=== PATIENT | male | born 1950 | race Caucasian/White ===

== ENCOUNTER 2022-01-31 14:38 | Inpatient (IN) ==
[2022-01-31 15:36] LABS: Basophils % 0.5 %; Eosinophils # 0.5 K/mcL (0.0-0.6); Eosinophils % 6.6 %; Hematocrit 46.6 % (37.5-50.1); Hemoglobin 15.4 g/dL (12.9-16.9); Immature Granulocytes % 0.3 % (0-4); Lymphocytes # 1.9 K/mcL (0.6-4.6); Lymphocytes % 23.2 %; Mean Corpuscular Hemoglobin 27.4 pg (28.0-33.3); Mean Corpuscular Volume 82.8 fL (83.0-100.0); Mean Platelet Volume 10.4 fL (9.4-12.4); Monocytes # 0.7 K/mcL (0.0-1.3); Monocytes % 8.5 %; Neutrophils # 4.9 K/mcL (1.6-8.9); Platelet Count 269 K/mcL (140-400); Red Blood Count 5.63 M/mcL (4.19-5.50); Red Cell Distribution Width 12.6 % (11.5-14.5); Segmented Neutrophils % 60.9 %
[2022-01-31 15:54] LABS: BUN/Creatinine Ratio 19 (6-26); Blood Urea Nitrogen 21 mg/dL (8-23); Calcium 9.7 mg/dL (8.6-10.3); Carbon Dioxide 31 mEq/L (23-29); Chloride 98 mEq/L (98-107); Glucose 340 mg/dL (70-105); Osmolality,Calculated 296 (280-300); Potassium 4.5 mEq/L (3.5-5.1); Sodium 135 mEq/L (136-145); eGFR For African Americans > 60 (> 60); eGFR For Non-African Americans > 60 (> 60)
[2022-01-31 15:57] LABS: Troponin I 0.09 ng/mL (< 0.04)
[2022-01-31] MEDS ORDERED: Aspirin 325 MG TABLET PO ONE ×2 (17:02→17:22)
[2022-01-31] MEDS ORDERED: Naloxone 0.4 MG/ML INJ IVP PRN (17:55)
[2022-01-31] MEDS ORDERED: Nitroglycerin 0.4 MG TAB.SUBL SL PRN (17:55)
[2022-01-31] MEDS ORDERED: Ondansetron ODT 4 MG TAB.RAPDIS SL PRN (17:55)
[2022-01-31] MEDS ORDERED: Morphine Sulfate 2 MG/ML SYRINGE IVP PRN (17:55)
[2022-01-31] MEDS ORDERED: Perflutren Lipid Microsphere 1.3 ML in 0.9 % Sodium Chloride 8.7 ML IVP PRN (17:55)
[2022-01-31] MEDS ORDERED: D5% in Water 1,000 ML IVC PRN (18:06)
[2022-01-31] MEDS ORDERED: *HR* Dextrose 50 % in Water (Syg) 50 ML SYRINGE IVP PRN (18:06)
[2022-01-31] MEDS ORDERED: Dextrose 4 GM Chewable Tablets PO PRN ×2 (18:06)
[2022-01-31] MEDS: Isovue-370 500 ML BOTTLE IVP ONE (18:53)
[2022-01-31 19:53] LABS: Estimated Average Glucose 243 mg/dl; Hemoglobin A1C 10.1 %
[2022-01-31] MEDS: Insulin DETEMIR 100 UNIT/ML X5UNITS SUBQ SCH (22:13)
[2022-01-31] MEDS: Insulin LISPRO 300 UNITS/3 ML VIAL SUBQ SCH (22:13)
[2022-01-31] MEDS ORDERED: Saline Nasal Spray 44 ML BOTTLE NS PRN (22:56)
[2022-02-01 01:02] LABS: Basophils % 0.4 %; Eosinophils # 0.6 K/mcL (0.0-0.6); Eosinophils % 6.1 %; Hematocrit 42.3 % (37.5-50.1); Hemoglobin 14.1 g/dL (12.9-16.9); Immature Granulocytes % 0.2 % (0-4); Lymphocytes # 2.7 K/mcL (0.6-4.6); Lymphocytes % 28.3 %; Mean Corpuscular HGB Conc 33.3 g/dL (31.6-35.5); Mean Corpuscular Hemoglobin 27.3 pg (28.0-33.3); Mean Corpuscular Volume 81.8 fL (83.0-100.0); Mean Platelet Volume 10.3 fL (9.4-12.4); Monocytes # 0.8 K/mcL (0.0-1.3); Monocytes % 8.3 %; Neutrophils # 5.5 K/mcL (1.6-8.9); Platelet Count 249 K/mcL (140-400); Red Blood Count 5.17 M/mcL (4.19-5.50); Red Cell Distribution Width 12.4 % (11.5-14.5); Segmented Neutrophils % 56.7 %; White Blood Count 9.7 K/mcL (4.3-11.1)
[2022-02-01 01:07] LABS: INR 0.9; Prothrombin Time 10.5 Seconds (9.4-12.1)
[2022-02-01 01:23] LABS: Alanine Aminotransferase 35 Units/L (7-52); Albumin 3.8 g/dL (3.5-5.7); Albumin/Globulin Ratio 1.4 (1.1-2.2); Alkaline Phosphatase 64 Units/L (34-104); Aspartate Amino Transferase 77 Units/L (13-39); BUN/Creatinine Ratio 18 (6-26); Bilirubin,Total 0.5 mg/dL (0.3-1.0); Blood Urea Nitrogen 17 mg/dL (8-23); Calcium 9.5 mg/dL (8.6-10.3); Carbon Dioxide 27 mEq/L (23-29); Chloride 100 mEq/L (98-107); Globulin 2.7 g/dL (2.4-3.5); Glucose 119 mg/dL (70-105); Magnesium 1.8 mg/dL (1.6-2.6); Osmolality,Calculated 285 (280-300); Sodium 136 mEq/L (136-145); Total Protein 6.5 g/dL (6.4-8.9); eGFR For African Americans > 60 (> 60); eGFR For Non-African Americans > 60 (> 60)
[2022-02-01] MEDS ORDERED: *HR* Heparin 5,000 UNIT/ML VIAL IVP PRN ×2 (01:30)
[2022-02-01] MEDS ORDERED: Heparin 25,000UNIT/250ML 1/2NS 25,000 UNIT/250 ML IV.SOLN IVC SCH (01:30)
[2022-02-01] MEDS ORDERED: *HR* Heparin 5,000 UNIT/ML VIAL IVP ONE (01:30)
[2022-02-01 06:17] LABS: Hematocrit 42.9 % (37.5-50.1); Hemoglobin 14.5 g/dL (12.9-16.9); Mean Corpuscular HGB Conc 33.8 g/dL (31.6-35.5); Mean Corpuscular Hemoglobin 27.8 pg (28.0-33.3); Mean Corpuscular Volume 82.2 fL (83.0-100.0); Mean Platelet Volume 10.4 fL (9.4-12.4); Platelet Count 250 K/mcL (140-400); Red Blood Count 5.22 M/mcL (4.19-5.50); Red Cell Distribution Width 12.5 % (11.5-14.5)
[2022-02-01] MEDS: Insulin LISPRO 300 UNITS/3 ML VIAL SUBQ SCH ×4 (08:14→20:09)
[2022-02-01] MEDS: Aspirin 81 MG TAB.CHEW PO SCH (08:14)
[2022-02-01] MEDS ORDERED: *HR* FentaNYL (PF) 100 MCG/2 ML VIAL ONE ×2 (10:51→15:26)
[2022-02-01] MEDS ORDERED: *HR* Midazolam HCl 2 MG/2 ML VIAL ONE ×2 (10:51→15:26)
[2022-02-01] MEDS ORDERED: 0.9 % Sodium Chloride 1,000 ML ONE ×3 (10:51→15:11)
[2022-02-01] MEDS ORDERED: *HR* Heparin 10,000 UNIT/10 ML VIAL ONE ×2 (10:52→11:00)
[2022-02-01] MEDS ORDERED: Heparin 1,000 UNITS/500 mL 500 ML ONE ×4 (10:52→14:29)
[2022-02-01] MEDS ORDERED: Nitroglycerin 1,000 MCG/5 ML VIAL IV ONE (10:52)
[2022-02-01] MEDS ORDERED: ISOVUE-370 200 ML INFUS..BTL ONE ×2 (10:52→12:00)
[2022-02-01] MEDS ORDERED: *HR* Ticagrelor 90 MG TABLET ONE (11:43)
[2022-02-01] MEDS ORDERED: *HR* Atropine Sulfate 1 MG/10 ML SYRINGE ONE ×2 (12:06→15:11)
[2022-02-01] MEDS ORDERED: 0.9 % Sodium Chloride 250 ML ONE (12:06)
[2022-02-01] MEDS ORDERED: *HR* Norepinephrine 4 MG/4 ML VIAL IVC ONE (12:06)
[2022-02-01] MEDS ORDERED: *HR* Adenosine 6 MG/2 ML VIAL IVP ONE (12:12)
[2022-02-01] MEDS ORDERED: Tirofiban 12.5 MG/250ML 12.5 MG/250 ML BAG ONE (12:26)
[2022-02-01] MEDS ORDERED: Lidocaine/EPI 1:100k 1% 30 ML VIAL ONE (14:04)
[2022-02-01] MEDS ORDERED: *HR* Atropine Sulfate 1 MG/10 ML SYRINGE IV ONE (15:13)
[2022-02-01] MEDS ORDERED: Clindamycin 600 MG/50 ML 600 MG/50 ML IV.SOLN IVPB ONE (15:20)
[2022-02-01] MEDS: Insulin DETEMIR 100 UNIT/ML X5UNITS SUBQ SCH (20:07)
[2022-02-01] MEDS: *HR* Ticagrelor 90 MG TABLET PO SCH (20:08)
[2022-02-02 04:37] VITALS: O2SAT 94
[2022-02-02 06:09] VITALS: BP 114/61; PULSE 52
[2022-02-02] MEDS ORDERED: Aspirin 81 MG TAB.CHEW PO SCH (09:00)
[2022-02-02] MEDS: *HR* Ticagrelor 90 MG TABLET PO SCH (09:05)
[2022-02-02] MEDS: Aspirin 81 MG TAB.CHEW PO SCH (09:05)
[2022-02-02] MEDS: Insulin LISPRO 300 UNITS/3 ML VIAL SUBQ SCH (09:06)
[2022-02-02 09:21] LABS: Basophils % 0.2 %; Eosinophils # 0.2 K/mcL (0.0-0.6); Hematocrit 43.5 % (37.5-50.1); Hemoglobin 14.5 g/dL (12.9-16.9); Immature Granulocytes % 0.4 % (0-4); Lymphocytes # 1.6 K/mcL (0.6-4.6); Lymphocytes % 15.4 %; Mean Corpuscular HGB Conc 33.3 g/dL (31.6-35.5); Mean Corpuscular Hemoglobin 27.4 pg (28.0-33.3); Mean Corpuscular Volume 82.2 fL (83.0-100.0); Mean Platelet Volume 10.3 fL (9.4-12.4); Monocytes % 9.7 %; Neutrophils # 7.6 K/mcL (1.6-8.9); Platelet Count 242 K/mcL (140-400); Red Blood Count 5.29 M/mcL (4.19-5.50); Red Cell Distribution Width 12.7 % (11.5-14.5); Segmented Neutrophils % 72.3 %; White Blood Count 10.5 K/mcL (4.3-11.1)
[2022-02-02 09:39] LABS: BUN/Creatinine Ratio 13 (6-26); Blood Urea Nitrogen 14 mg/dL (8-23); Calcium 9.2 mg/dL (8.6-10.3); Carbon Dioxide 26 mEq/L (23-29); Chloride 100 mEq/L (98-107); Glucose 219 mg/dL (70-105); Osmolality,Calculated 283 (280-300); Potassium 4.2 mEq/L (3.5-5.1); Sodium 133 mEq/L (136-145); eGFR For African Americans > 60 (> 60); eGFR For Non-African Americans > 60 (> 60)
[2022-02-02 12:20] VITALS: TEMP 98.1
== END 2022-02-02 14:25 | disposition home or self-care (01) | DRG 271 ==
LOC: EMEROOARM 14:38 → 3BNU 14:38 → ICNU 02-01 14:25 → SUATTDRO 02-01 15:08
PROVIDERS: ADMIT Internal Medicine; ATTEND Family Medicine